=== PATIENT | male | born 1970 | race Caucasian/White ===

== ENCOUNTER 2018-05-18 10:18 | Emergency (ER) | payer SELFPAY ==
[~2018-05-18] VITALS: Ht 167.6 cm; Wt 95.5 kg
[2018-05-18] MEDS ORDERED: IBUPROFEN 600MG TABLET PO ONE (12:15)
[2018-05-18 14:25] VITALS: BP 144/59
== END 2018-05-18 14:27 | disposition home or self-care (01) ==
LOC: ER 10:18
DX: M25.562 Pain in left knee (principal)
CPT/HCPCS: 73562; 99284; L1830